=== PATIENT | male | born 1980 | race Caucasian/White ===

== ENCOUNTER → 2017-09-14 | Outpatient (CLI) | payer OTHER ==
--- NOTE | 2017-09-14 11:57 | US ---
EXAMINATION TYPE: US abdomen complete DATE OF EXAM: 09/14/2017 COMPARISON: NONE CLINICAL HISTORY: R10.11 RUQ Pain. Patient has sensation that he feels something within ruq, not pain EXAM MEASUREMENTS: Liver Length: 15.7 cm Gallbladder Wall: 0.2 cm CBD: 0.5 cm Spleen: 13.2 cm Right Kidney: 10.5 x 6.3 x 5.7 cm Left Kidney: 12.2 x 4.6 x 6.2 cm Large body habitus and bowel gas limits exam Pancreas: unable to visualize due to gas Liver: very difficult to penetrate Gallbladder: wnl Evidence for sonographic Acevedo's sign: no CBD: wnl Spleen: enlarged Right Kidney: wnl Left Kidney: wnl and kidneys show normal cortical medullary differentiation. Upper IVC: wnl Abd Aorta: limited views appear wnl There is no ascites. IMPRESSION: Exam is limited. Correlate for hepatic steatosis, hepatocellular disease. Splenomegaly.
== END | disposition home or self-care (01) ==
LOC: RADUSWWP 09:06
PROVIDERS: ATTEND Internal Medicine
DX: R16.1 Splenomegaly, not elsewhere classified (principal); R10.11 Right upper quadrant pain; Z88.2 Allergy status to sulfonamides
CPT/HCPCS: 76700

== ENCOUNTER 2018-06-05 17:42 | Emergency (ER) | payer OTHER ==
[2018-06-05 17:47] VITALS: RESP 18
[2018-06-05] MEDS ORDERED: hydrOXYzine PAMOATE 25 MG CAP PO ONE (18:08)
--- NOTE | 2018-06-05 18:17 | ED ---
General Adult HPI - General Chief complaint: Anxiety Stated complaint: POSS ANXIETY, TINGLING IN LEFT HAND Time Seen by Provider: 06/05/18 17:54 Source: patient Mode of arrival: ambulatory Limitations: no limitations - History of Present Illness Initial comments: patient presents with a CC of anxiety. he states that he does not normally have issues with anxiety, but since he was recently treated for bronchitis, he has felt anxious and "fuzzy." the patient states that he also recently had an episode of elevated intraocular pressure, he states he is on medications for glaucoma including ophthalmic prednisone, but he was not formally diagnosed with glaucoma. he states that he has a follow up appointment scheduled. he has no visual complaints today. he states that he has felt palpitations and light headedness periodically over the last few days. he cannot identify any inciting incidences, no aggravating or alleviating factors. timing is intermittent. - Related Data Home Medications Medication Instructions Recorded Confirmed Albuterol Inhaler [Ventolin Hfa 2 puff INHALATION RT-Q6H 06/05/18 06/05/18 Inhaler] Timolol 0.5% Ophth Soln [Timoptic 1 drop LEFT EYE BID 06/05/18 06/05/18 0.5% Ophth Soln] prednisoLONE ACETATE [Pred Forte 1 drop LEFT EYE Q2HR 06/05/18 06/05/18 1%] Allergies Allergy/AdvReac Type Severity Reaction Status Date / Time Sulfa (Sulfonamide Allergy Unknown Verified 06/05/18 18:23 Antibiotics) sulfamethoxazole Allergy Unknown Verified 06/05/18 18:23 [From Bactrim] trimethoprim [From Bactrim] Allergy Unknown Verified 06/05/18 18:23 Review of Systems ROS Statement: Those systems with pertinent positive or pertinent negative responses have been documented in the HPI. ROS Other: All systems not noted in ROS Statement are negative. Cardiovascular: Reports: palpitations Past Medical History Past Medical History: No Reported History History of Any Multi-Drug Resistant Organisms: None Reported Past Surgical History: No Surgical Hx Reported Additional Past Surgical History / Comment(s): eye Past Psychological History: Anxiety Smoking Status: Never smoker Past Alcohol Use History: Occasional Past Drug Use History: None Reported General Exam Limitations: no limitations General appearance: alert, in no apparent distress Head exam: Present: atraumatic, normocephalic Eye exam: Present: normal appearance, PERRL ENT exam: Present: normal exam, mucous membranes moist, normal external ear exam , other (TM's have caluses on them bilaterally, no evidence of effusion or infection ) Neck exam: Present: normal inspection Respiratory exam: Present: normal lung sounds bilaterally. Absent: respiratory distress, wheezes Cardiovascular Exam: Present: regular rate, normal rhythm GI/Abdominal exam: Present: soft. Absent: distended Rectal exam: Present: deferred Extremities exam: Present: normal inspection, tenderness Back exam: Present: normal inspection. Absent: CVA tenderness (R), CVA tenderness (L) Neurological exam: Present: alert, oriented X3, CN II-XII intact, normal gait, other (coordination intact). Absent: motor sensory deficit Psychiatric exam: Present: normal affect, normal mood Skin exam: Present: warm, dry, intact, normal color. Absent: rash Course Vital Signs 06/05/18 06/05/18 17:43 20:23 Temperature 98.1 F 98.6 F Pulse Rate 107 H 91 Respiratory 18 18 Rate Blood Pressure 145/95 152/92 O2 Sat by Pulse 97 97 Oximetry Medical Decision Making - Medical Decision Making patient presents with a CC of anxiety. on initial evaluation, VS stable, patient in no acute distress. he reports no previous history of anxiety, but has had bronchitis and ocular issues lately. he has been on prednisone orally and ophthalmologically. patient will be evaluated with basic labs including cxr and ekg. d-dimer also evaluated as patient describes light headedness, palpitations and some pleuritic chest pain with tachycardia today. EKG performed at 1840 shows sinus tachycardia with PACs. Ventricular rate is 104 bpm. EKG shows no acute signs of ischemia, segment. Within normal limits. 9:23 PM Lab evaluation of this patient is unremarkable. D-dimer is negative therefore making PE unlikely diagnosis. On reevaluation, heart rate is improved after IV fluids. Patient states that he feels improved. We'll repeat EKG prior to discharge however patient was instructed to follow up with primary care in 1-2 days, follow up with ophthalmology tomorrow, and come back to the emergency department if symptoms worsen or change. 9:25 PM EKG performed at 9:23 pm shows sinus rhythm with PACs, ventricular rate is 88 bpm. Again EKG is not showing any signs of ischemia, segment are within normal limits. Patient stable for discharge. - Lab Data Result diagrams: 06/05/18 18:30 06/05/18 18:30 Lab Results 06/05/18 06/05/18 06/05/18 Range/Units 18:30 18:30 18:30 WBC 8.2 (3.8-10.6) k/uL RBC 5.82 (4.30-5.90) m/uL Hgb 17.2 (13.0-17.5) gm/dL Hct 50.2 (39.0-53.0) % MCV 86.3 (80.0-100.0) fL MCH 29.6 (25.0-35.0) pg MCHC 34.3 (31.0-37.0) g/dL RDW 13.0 (11.5-15.5) % Plt Count 162 (150-450) k/uL Neutrophils % 63 % Lymphocytes % 28 % Monocytes % 4 % Eosinophils % 2 % Basophils % 1 % Neutrophils # 5.2 (1.3-7.7) k/uL Lymphocytes # 2.3 (1.0-4.8) k/uL Monocytes # 0.3 (0-1.0) k/uL Eosinophils # 0.2 (0-0.7) k/uL Basophils # 0.1 (0-0.2) k/uL D-Dimer <0.17 (<0.60) mg/L FEU Sodium 140 (137-145) mmol/L Potassium 4.2 (3.5-5.1) mmol/L Chloride 107 (98-107) mmol/L Carbon Dioxide 23 (22-30) mmol/L Anion Gap 10 mmol/L BUN 10 (9-20) mg/dL Creatinine 0.94 (0.66-1.25) mg/dL Est GFR (CKD-EPI)AfAm >90 (>60 ml/min/1.73 sqM) Est GFR (CKD-EPI)NonAf >90 (>60 ml/min/1.73 sqM) Glucose 94 (74-99) mg/dL Calcium 9.4 (8.4-10.2) mg/dL Troponin I (0.000-0.034) ng/mL 06/05/18 Range/Units 18:30 WBC (3.8-10.6) k/uL RBC (4.30-5.90) m/uL Hgb (13.0-17.5) gm/dL Hct (39.0-53.0) % MCV (80.0-100.0) fL MCH (25.0-35.0) pg MCHC (31.0-37.0) g/dL RDW (11.5-15.5) % Plt Count (150-450) k/uL Neutrophils % % Lymphocytes % % Monocytes % % Eosinophils % % Basophils % % Neutrophils # (1.3-7.7) k/uL Lymphocytes # (1.0-4.8) k/uL Monocytes # (0-1.0) k/uL Eosinophils # (0-0.7) k/uL Basophils # (0-0.2) k/uL D-Dimer (<0.60) mg/L FEU Sodium (137-145) mmol/L Potassium (3.5-5.1) mmol/L Chloride (98-107) mmol/L Carbon Dioxide (22-30) mmol/L Anion Gap mmol/L BUN (9-20) mg/dL Creatinine (0.66-1.25) mg/dL Est GFR (CKD-EPI)AfAm (>60 ml/min/1.73 sqM) Est GFR (CKD-EPI)NonAf (>60 ml/min/1.73 sqM) Glucose (74-99) mg/dL Calcium (8.4-10.2) mg/dL Troponin I <0.012 (0.000-0.034) ng/mL Disposition Clinical Impression: Acute anxiety, PAC (premature atrial contraction) Disposition: HOME SELF-CARE Condition: Good Instructions: Generalized Anxiety Disorder (ED) Is patient prescribed a controlled substance at d/c from ED?: No Referrals: Gayle Freed MD [Primary Care Provider] - 1-2 days
[2018-06-05 18:50] LABS: Basophils # (A) 0.1 k/uL (0-0.2); Basophils % (A) 1 %; Eosinophils # (A) 0.2 k/uL (0-0.7); Eosinophils % (A) 2 %; HCT 50.2 % (39.0-53.0); HGB 17.2 gm/dL (13.0-17.5); Lymphocytes # (A) 2.3 k/uL (1.0-4.8); Lymphocytes % (A) 28 %; MCH 29.6 pg (25.0-35.0); MCHC 34.3 g/dL (31.0-37.0); MCV 86.3 fL (80.0-100.0); Mean Platelet Volume 8.5; Monocytes # (A) 0.3 k/uL (0-1.0); Monocytes % (A) 4 %; Neutrophils # (A) 5.2 k/uL (1.3-7.7); Neutrophils % (A) 63 %; Platelet Count 162 k/uL (150-450); RBC 5.82 m/uL (4.30-5.90); WBC 8.2 k/uL (3.8-10.6)
[2018-06-05 18:55] LABS: Anion Gap 10 mmol/L; Blood Urea Nitrogen 10 mg/dL (9-20); Calcium 9.4 mg/dL (8.4-10.2); Carbon Dioxide 23 mmol/L (22-30); Chloride 107 mmol/L (98-107); Glucose 94 mg/dL (74-99); Potassium 4.2 mmol/L (3.5-5.1); Sodium 140 mmol/L (137-145)
--- NOTE | 2018-06-05 19:24 | XR ---
EXAMINATION TYPE: XR chest 2V DATE OF EXAM: 06/05/2018 COMPARISON: Chest x-ray December 12, 2012. HISTORY: Palpitations and anxiety. TECHNIQUE: Frontal and lateral views of the chest are obtained. FINDINGS: There is no focal air space opacity, pleural effusion, or pneumothorax seen. The cardiac silhouette size is within normal limits. The osseous structures are intact. IMPRESSION: No acute cardiopulmonary process. No significant change from prior.
[2018-06-05] MEDS ORDERED: SODIUM CHLORIDE 0.9% 2,000 ML IV ONE (19:39)
[2018-06-05 20:24] VITALS: BP 152/92; PULSE 91; TEMP 98.6
== END 2018-06-05 21:40 | disposition home or self-care (01) ==
LOC: EC 17:42
DX: F41.9 Anxiety disorder, unspecified (principal); I49.1 Atrial premature depolarization; J40 Bronchitis, not specified as acute or chronic; Z88.2 Allergy status to sulfonamides; Z79.52 Long term (current) use of systemic steroids; Z79.899 Other long term (current) drug therapy; Z86.69 Personal history of other diseases of the nervous system and sense organs
CPT/HCPCS: 36415; 71046; 80048; 84484; 85025; 85379; 93005; 96360; 96361; 99284

== ENCOUNTER → 2018-06-09 | Outpatient (CLI) | payer OTHER ==
--- NOTE | 2018-06-10 10:47 | XR ---
EXAMINATION TYPE: XR thoracic spine 2V DATE OF EXAM: 06/09/2018 CLINICAL HISTORY: Neck and back pain. TECHNIQUE: Frontal, lateral, and swimmer's view of thoracic spine are obtained. COMPARISON: None. FINDINGS: Thoracic spine show satisfactory alignment without evidence of acute fracture or dislocatio n. Vertebral body heights and disc space heights are preserved. Visualized ribs are unremarkable. IMPRESSION: No acute fracture or dislocation is seen in the thoracic spine. No significant degenerat emmy disc disease. If there is concern for disc herniation MRI could be performed.
--- NOTE | 2018-06-10 10:57 | XR ---
EXAMINATION TYPE: XR cervical spine comp DATE OF EXAM: 06/09/2018 TECHNIQUE: Frontal, lateral, oblique, swimmers, and open mouth view of the cervical spine are obtaine d. HISTORY: R52 Pain COMPARISON: None FINDINGS: The cervical spine is visualized in its entirety from C1 thru the top of T1 level, it is s atisfactory in alignment without evidence of acute fracture or dislocation. The pre-vertebral soft t issue appears within normal limits. The C1-C2 articulation is within normal limits on the open mouth view. The oblique images are within normal limits. IMPRESSION: No acute fracture or dislocation is seen in the cervical spine. No significant degenerat emmy disc disease. If there is concern for disc herniation MRI could be performed.
--- NOTE | 2018-06-10 10:59 | XR ---
EXAMINATION TYPE: XR lumbar spine 2 or 3V DATE OF EXAM: 06/09/2018 CLINICAL HISTORY: Neck and back pain TECHNIQUE: Frontal, lateral, and oblique images of the lumbar spine are obtained. COMPARISON: None FINDINGS: There are 5 lumbar type vertebral bodies identified. The lumbar spine shows satisfactory alignment without evidence of acute fracture or dislocation. Vertebral body heights and disk space he ights are within normal limits. Minimal facet arthropathy is seen at L4-L5 and L5-S1. The oblique im ages appear within normal limits. The overlying soft tissue appears unremarkable. IMPRESSION: No acute fracture or dislocation is seen in the lumbar spine. Minimal facet arthropathy at L4-L5 and L5-S1.
== END ==
LOC: RADXRMAIN 15:21
PROVIDERS: ATTEND Internal Medicine
DX: M46.97 Unspecified inflammatory spondylopathy, lumbosacral region (principal); R52 Pain, unspecified
CPT/HCPCS: 72050; 72070; 72100

== ENCOUNTER → 2018-06-20 | Outpatient (CLI) | payer OTHER ==
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
== END | disposition home or self-care (01) ==
LOC: RADMRIMAIN 08:52
PROVIDERS: ATTEND Internal Medicine
DX: M99.73 Connective tissue and disc stenosis of intervertebral foramina of lumbar region (principal); M51.27 Other intervertebral disc displacement, lumbosacral region; M51.36 Other intervertebral disc degeneration, lumbar region; M43.8X6 Other specified deforming dorsopathies, lumbar region
CPT/HCPCS: 72148

== ENCOUNTER → 2018-11-11 | Outpatient (CLI) | payer OTHER ==
--- NOTE | 2018-11-11 19:18 | CT ---
EXAMINATION TYPE: CT sinus wo con DATE OF EXAM: 11/11/2018 COMPARISON: None HISTORY: Chronic sinusitis. CT DLP: 674 mGycm CONTRAST: None The paranasal sinuses are examined in the axial plane at 2 mm thick sections. Reconstructed images i n the coronal plane were obtained. The maxillary sinuses are clear. The ethmoid air cells are clear. The sphenoid sinuses are clear. The frontal sinuses are clear. The septum is evaluated. There is septal deviation to the left. Left septal spur is also noted. The ostiomeatal units are patent. Small amount of fluid is within right inferior mastoid air cells. There is a large right jugular bulb very thin rim of low in the tympanic membrane IMPRESSIONS: 1. Normal paranasal sinuses. 2. Left septal deviation is left septal spurring. 3. Minimal inferior right mastoiditis.
== END | disposition home or self-care (01) ==
LOC: RADCTMAIN 16:23
PROVIDERS: ATTEND Otolaryngology
DX: J32.9 Chronic sinusitis, unspecified (principal); J34.2 Deviated nasal septum
CPT/HCPCS: 70486

== ENCOUNTER → 2019-07-11 | Outpatient (CLI) | payer BC ==
[2019-07-11 09:21] LABS: Basophils # (A) 0.1 k/uL (0-0.2); Basophils % (A) 1 %; Eosinophils # (A) 0.1 k/uL (0-0.7); Eosinophils % (A) 2 %; HCT 50.2 % (39.0-53.0); HGB 17.2 gm/dL (13.0-17.5); Lymphocytes # (A) 2.1 k/uL (1.0-4.8); Lymphocytes % (A) 34 %; MCH 29.9 pg (25.0-35.0); MCHC 34.3 g/dL (31.0-37.0); MCV 87.2 fL (80.0-100.0); Mean Platelet Volume 9.4; Monocytes # (A) 0.3 k/uL (0-1.0); Monocytes % (A) 5 %; Neutrophils # (A) 3.6 k/uL (1.3-7.7); Neutrophils % (A) 57 %; Platelet Count 164 k/uL (150-450); RBC 5.76 m/uL (4.30-5.90); RDW 12.7 % (11.5-15.5); WBC 6.3 k/uL (3.8-10.6)
[2019-07-11 17:08] LABS: % Iron Saturation 25.98 (15.00-50.00); African American GFR (CKD) 96.8 (60.0-200.0); Albumin 4.7 g/dL (3.80-4.90); Albumin/Globulin Ratio 2.35 (1.60-3.17); Anion Gap 7.9 mmol/L (4.00-12.00); BUN/Creat Ratio 11.82 Ratio (12.00-20.00); Calcium 9.5 mg/dL (8.7-10.3); Carbon Dioxide 28.1 mmol/L (21.6-31.8); Chol/HDL Ratio 2.89; LDL Cholesterol,Calculated 81.8 mg/dL (0.0-131.0); Non-African American GFR(CKD) 83.5 (60.0-200.0); Potassium 4.3 mmol/L (3.5-5.5); Total Bilirubin 0.6 mg/dL (0.2-1.2); Total Protein 6.7 g/dL (6.2-8.2); VLDL Calculation 20.2 mg/dL (5.00-40.00)
== END | disposition home or self-care (01) ==
LOC: LABWHC1 08:30
PROVIDERS: ATTEND Nurse Practitioner Adult Health
DX: Z00.00 Encounter for general adult medical examination without abnormal findings (principal); M54.5 Low back pain; R10.11 Right upper quadrant pain; E66.9 Obesity, unspecified; R53.83 Other fatigue
CPT/HCPCS: 36415; 80053; 80061; 82150; 82306; 82607; 83540; 83550; 83690; 84443; 85025

== ENCOUNTER 2020-07-25 11:28 | Day surgery (SDC) | payer BC ==
[2020-07-23 14:19] VITALS: BMI 30.2
[~2020-07-25 11:28] MED LIST: SODIUM CHLORIDE 0.9% 1,000 ML IV SCH
[2020-07-25] MEDS ORDERED: SODIUM CHLORIDE 0.9% 500 ML 500 ML IV ONE (11:47)
[2020-07-25 11:52] VITALS: RESP 16; TEMP 99
[2020-07-25 13:25] VITALS: BP 123/69; PULSE 99
--- NOTE | 2020-07-25 18:52 | P.EPPROC ---
- EP Procedure Note Electrophysiology Procedure Note: Diagnosis Recurrent dizzy spells and presyncope Twelve-lead EKG shows sinus rhythm normal AR narrow QRS early repolarization abnormality Tilt table test per protocol Baseline heart rate 80 beats a minute, Baseline blood pressure 124/77 mmHg Patient was tilted upright at an angle of 70 per protocol. There is no change in his blood pressure. In the first 10 minutes there was no significant change in his heart rate. Related to in the end of the test his heart rate did go up to 126 beats a minute and at that time he felt a bit nauseous. Following that there was a very mild drop in his blood pressure 206/83 mmHg and 119/78 mmHg. He felt nauseous, he felt hot with a little chest discomfort There was no evidence for neurocardiogenic syncope Impression No clear-cut evidence for neurocardiogenic syncope Mild sinus tachycardia noted that is associated with nausea but without any drop in blood pressure
== END 2020-07-25 13:33 | disposition home or self-care (01) ==
LOC: CATHEP 11:28
PROVIDERS: ATTEND Internal Medicine Clinical Cardiac Electrophysiology
DX: R55 Syncope and collapse (principal); R42 Dizziness and giddiness; R00.0 Tachycardia, unspecified; R11.0 Nausea; R94.31 Abnormal electrocardiogram [ECG] [EKG]; Z88.2 Allergy status to sulfonamides
CPT/HCPCS: 93005; 93660

== ENCOUNTER → 2020-07-31 | Outpatient (CLI) | payer BC ==
--- NOTE | 2020-07-31 09:51 | MR ---
EXAMINATION TYPE: MR cervical spine wo/w con DATE OF EXAM: 07/31/2020 COMPARISON: X-ray 03/25/2020 HISTORY: pain down left arm and fingers and dizziness for a few years TECHNIQUE: Multiplanar, multisequence images of the cervical spine were acquired utilizing 10 mL intravenous Alexis avist gadolinium contrast. Diffusion weighted imaging was performed. Exam limited by motion artifact. Assessment of abnormal signal within the spinal cord limited due to artifact. Report called to Kirstin COUGHLIN at 9:46 AM 07/31/2020. C2-C3: No evidence for degenerative disc disease. No disc bulge/herniation or protrusion. No Canal stenosis. Foramina are patent bilaterally. C3-C4: Broad-based right paracentral disc bulging with mild effacement of thecal sac but no canal carlyn nosis or spinal cord contact. Uncovertebral joint hypertrophy and facet arthropathy contribute to mil d bilateral foraminal encroachment. C4-C5: Degenerative disc disease with broad-based central disc bulging and mild effacement of thecal sac. No canal stenosis or spinal cord contact. Mild bilateral foraminal encroachment and facet arthro emerson. C5-C6: Severe degenerative disc disease with large right paracentral disc herniation resulting in ant erior spinal cord compression. Neural foramina patent. C6-C7: Large right paracentral disc herniation with probable extruded fragment extending along the lo wer margin of C6 vertebral segment paracentrally to the right. There is anterior spinal cord compress ion and displacement of the exiting nerve root. Left neural foramina patent. C7-T1: No evidence for degenerative disc disease. No disc bulge/herniation or protrusion. No Canal stenosis. Foramina are patent bilaterally. Cervical segments are intact. There is normal alignment. Cervical spinal cord is of normal signal. Craniovertebral junction relationships are within normal limits. Large vertebral body hemangioma T2 . No pathologic enhancement postcontrast of administration. IMPRESSION: 1. Large right paracentral disc herniation C5-6 and C6-C7 spinal cord compression at both levels. Dis placement of the exiting right nerve root at C6-C7. 2. Multilevel disc bulging and degenerative disc disease with multilevel mild foraminal encroachment as discussed above. 3. Motion artifact limits assessment spinal cord for abnormal signal. No obvious areas of abnormal si gnal noted. However, significant compression of the spinal cord noted as discussed above.
== END | disposition home or self-care (01) ==
LOC: RADMRIMAIN 07:53
PROVIDERS: ATTEND Nurse Practitioner Adult Health
DX: M50.222 Other cervical disc displacement at C5-C6 level (principal); M50.30 Other cervical disc degeneration, unspecified cervical region; G95.20 Unspecified cord compression; R93.7 Abnormal findings on diagnostic imaging of other parts of musculoskeletal system
CPT/HCPCS: 72156; A9585